=== PATIENT | male | born 1955 | race Caucasian/White ===

== ENCOUNTER 2019-08-21 08:36 | Day surgery (SDC) | payer MEDICARE, BC ==
[2019-08-19 10:32] VITALS: BMI 24.6
[~2019-08-21 08:36] MED LIST: LACTATED RINGERS 1,000 ML IV SCH
[2019-08-21 09:06] VITALS: TEMP 98.3
[2019-08-21] MEDS ORDERED: MIDAZOLAM 2 MG/2 ML VIAL ONE (09:23)
[2019-08-21] MEDS ORDERED: fentaNYL (PF) 50 MCG/ML 2 ML AMP ONE (09:23)
[2019-08-21] MEDS ORDERED: PROPOFOL 10 MG/ML 20 ML VIAL IV ONE (09:23)
--- NOTE | 2019-08-21 09:29 | P.GSHP ---
History of Present Illness H&P Date: 08/21/19 Chief Complaint: Ulcerative colitis Patient here today for colonoscopy. Patient with history of ulcerative colitis. Last colonoscopy 3 years ago. Symptoms are fairly well controlled with balsalazide. Strong family history of inflammatory bowel disease. Rectal bleeding recently. No family history of colon cancer. Past Medical History Past Medical History: Hyperlipidemia, Hypertension Additional Past Medical History / Comment(s): ulcerative colitis History of Any Multi-Drug Resistant Organisms: None Reported Past Surgical History: No Surgical Hx Reported Past Anesthesia/Blood Transfusion Reactions: No Reported Reaction Smoking Status: Never smoker - Past Family History Mother Family Medical History: Cancer Additional Family Medical History / Comment(s): lung Medications and Allergies Home Medications Medication Instructions Recorded Confirmed Type Fexofenadine HCl [Shahrzad Allergy] 180 mg PO DAILY PRN 05/13/14 08/21/19 History Metoprolol Tartrate [Lopressor] 100 mg PO BID 05/13/14 08/21/19 History Simvastatin [Zocor] 40 mg PO HS 05/13/14 08/21/19 History Balsalazide Disodium 1,500 mg PO TID 08/19/19 08/21/19 History Oxymetazoline 0.05% Nasl [place] 2 spray EA NOSTRIL DAILY PRN 08/19/19 08/21/19 History [Afrin 0.05% Nasal [place]] Allergies Allergy/AdvReac Type Severity Reaction Status Date / Time No Known Allergies Allergy Verified 08/21/19 08:55 Surgical - Exam Vital Signs Temp Pulse Resp BP Pulse Ox 98.3 F 54 L 18 134/78 96 08/21/19 09:05 08/21/19 09:05 08/21/19 09:05 08/21/19 09:05 08/21/19 09:05 Physical exam: General: Well-developed, well-nourished HEENT: Normocephalic, sclerae nonicteric Abdomen: Nontender, nondistended Extremities: No edema Neuro: Alert and oriented Assessment and Plan (1) Colitis Narrative/Plan: Will proceed with colonoscopy Current Visit: Yes Status: Acute Code(s): K52.9 - NONINFECTIVE GASTROENTERITIS AND COLITIS, UNSPECIFIED SNOMED Code(s): 08364234
--- NOTE | 2019-08-21 09:49 | P.PCN ---
Date of Procedure: 08/21/19 Procedure(s) Performed: PREOPERATIVE DIAGNOSIS: Colitis POSTOPERATIVE DIAGNOSIS: Hepatic flexure polyp, pancolitis PROCEDURE: Colonoscopy with snare polypectomy and biopsy ANESTHESIA: MAC SURGEON: Yimi Wick M.D. SPECIMENS: Hepatic flexure polyp, colitis ENDOSCOPIC PROCEDURE: The patient was placed on the endoscopy table in the left decubitus position. The Olympus colonoscope was inserted into the anus and passed under direct visualization to the base of the cecum. The appendiceal orifice was visualized. From that point the scope was slowly withdrawn inspecting all surfaces carefully. There was noted to be evidence of colitis diffusely. Inflammatory changes more severe the more distal we evaluated. At the hepatic flexure a small polyp was identified and removed using the snare with cautery technique. No additional polypoid lesions or neoplastic changes were seen throughout the colon. There were no deep ulceration seen in the patient's posterior place him to be most active in the rectum as expected. There was very subtle narrowing of the mid rectum without ulceration or nodular ity. Random biopsies of the colitis took place throughout the colon. No diverticulosis was seen. Digital rectal examination was normal. The patient was taken to the recovery room in stable condition per anesthesia guidelines. RECOMMENDATIONS: Await biopsy results. Will defer to GI for future inflammatory bowel disease management.
[2019-08-21 09:57] VITALS: RESP 16
[2019-08-21 10:10] VITALS: BP 121/75; PULSE 53
[2019-08-26 06:58] LABS: Glucose,Whole Blood 118 mg/dL (75-99)
== END 2019-08-21 10:17 | disposition home or self-care (01) ==
LOC: ORWHC2ENDO 08:36
PROVIDERS: ATTEND Surgery
DX: K51.90 Ulcerative colitis, unspecified, without complications (principal); K63.5 Polyp of colon; I10 Essential (primary) hypertension; E78.5 Hyperlipidemia, unspecified; Z79.899 Other long term (current) drug therapy; Z83.79 Family history of other diseases of the digestive system; Z80.1 Family history of malignant neoplasm of trachea, bronchus and lung
CPT/HCPCS: 88305; 45380; 45385; J2250; J3010; J2704

== ENCOUNTER 2021-07-28 07:35 | Day surgery (SDC) | payer MEDICARE, BC ==
[2021-07-26 12:53] VITALS: BMI 24.6
[~2021-07-28 07:35] MED LIST changes: +LIDOCAINE 1% (10MG/ML) FOR IV START INTRADERMA PRN
[2021-07-28] MEDS ORDERED: PROPOFOL 10 MG/ML 20 ML VIAL IV ONE (08:17)
[2021-07-28 08:20] VITALS: TEMP 97.9
[2021-07-28 08:29] LABS: Glucose,Whole Blood 135 mg/dL (75-99)
--- NOTE | 2021-07-28 08:39 | P.PCN ---
Date of Procedure: 07/28/21 Procedure(s) Performed: BRIEF HISTORY: Patient is a in 86-year-old pleasant white male scheduled for an elective colonoscopy as a part of long-standing history of ulcerative colitis diagnosed almost 35 years ago. He is in clinical remission. He is maintained on balsalazide 3 tablets 3 times daily. PROCEDURE PERFORMED: Colonoscopy with random biopsies. PREOPERATIVE DIAGNOSIS: Long-standing history of ulcerative colitis. IV sedation per Anesthesia. PROCEDURE: After informed consent was obtained, the patient, was brought into the endoscopy unit. IV sedation was administered by Anesthesia under continuous monitoring. Digital rectal examination was normal. Initially the Olympus CF-160 flexible video colonoscope was then inserted in the rectum, gradually advanced into the cecum without any difficulty. Careful examination was performed as the scope was gradually being withdrawn. Ileocecal valve and the appendiceal orifice were visualized and appeared normal. Prep was excellent. Mucosa of the cecum, ascending colon, transverse colon, appeared normal. There were patchy areas of erythema noted in the proximal descending colon, mid sigmoid colon and proximal rectum with no erosions or ulcerations and multiple biopsies were done at every 10 cm intervals from the cecum to the rectum to rule out dysplasia. There was some scarring of the mucosa noted in the distal rectum. The patient tolerated the procedure well. IMPRESSION: Mild patchy areas of erythema noted in the proximal rectum, mid sigmoid colon and proximal descending colon but no evidence of colorectal neoplasia Some scarring in the distal rectum noted. RECOMMENDATIONS: Findings of this examination were discussed with the patient as well as his family. He was advised to follow with the biopsy results. If the biopsy does not show any evidence of dysplasia, he can have a repeat colonoscopy every 2 years.. He was advised to continue with balsalazide 3 tablets 3 times daily.
[2021-07-28 08:58] VITALS: BP 129/81; PULSE 61; RESP 16
== END 2021-07-28 09:11 | disposition home or self-care (01) ==
LOC: ORWHC2ENDO 07:35
PROVIDERS: ATTEND Internal Medicine Gastroenterology
DX: K51.90 Ulcerative colitis, unspecified, without complications (principal)
CPT/HCPCS: 45380; J2704

== ENCOUNTER → 2022-01-25 | Outpatient (CLI) | payer MEDICARE, BC ==
--- NOTE | 2022-01-25 12:26 | NM ---
EXAMINATION TYPE: NM stress cardiolite complete DATE OF EXAM: 01/25/2022 COMPARISON: NONE HISTORY: I25.10 TECHNIQUE: After the intravenous administration of 9.8 mCi Tc 99m Sestamibi - Rest images obtained 4 5 minutes post injection. The patient exercised using a MARTHA protocol and 1 minute prior to peak e xercise was injected with 25.5 mCi Tc 99m Sestamibi - Stress images obtained 30 minutes post injectio n. FINDINGS: Targeted heart rate was achieved during performance of the study, patient achieved greater than 100% of predicted maximal heart rate. Review of stress and rest SPECT images demonstrates decreased uptake along the inferior wall the left ventricle on stress as compared to rest images. Gated analysis vero ws normal wall motion with an estimated left ventricular ejection fraction of 62 %. IMPRESSION: Findings suggest stress-induced left ventricular myocardial ischemia along the inferior wall left ramez tricle A Yellow level critical message alert has been initiated for Sandra Suacedo MD via the [employer] Critical Results System on 01/25/2022 12:23 PM. This message alert has been sent to Sandra Saucedo MD via the preferences provided by the clinician for the receipt of Radiology Critical Findings. Message ID [id number].
--- NOTE | 2022-01-26 10:27 | CA ---
Exercise Stress Test Report Name: Ceferino Rene Exam Date: 01/25/2022 10:43 Exam Location: [place] [facility] Ht (in): 75 Wt (lb): 200 BSA: 2.19 Ordering Phys: Sandra Saucedo MD Referring Phys: Sheryl, Technologist: Anil Stewart Age: 66 Gender: M : 1955 Procedure CPT: Indications: I25.10 Atherosclerotic heart disease ICD-10 Codes: Patient History: Hx of HTN, Diabetes, Elevated cholesterol, Family Hx of heart disease. Medications: Metoprolol, Simvastatin, Vitamin D, Meds past 24 hrs: Pretest Chest Pain: STRESS TEST Jn Protocol Exercise Duration (min:sec): 10:[address] Depressions (mm): Angina Score: Bunn Score: Resting HR (bpm): 87 Peak HR (bpm): 160 Resting BP (mmHg): 148 / 93 Peak BP (mmHg): 198 / 86 MPHR: 153 Target HR: 130 % MPHR: 105 METS: 12.1 Total Dose: Peak Dose: Atropine: Double Product: 35661 BP Response: Stress Termination: Stress Symptoms: No symptoms Stress Summary: ECG ANALYSIS Resting ECG: Stress ECG: CONCLUSIONS Baseline heart rate 69 beats a minute, Baseline blood pressure 143/93 mmHg Baseline EKG shows sinus rhythm and normal ST segments Patient exercised on a Jn protocol for 10 minutes, achieving a peak heart rate of 160 beats a minute T blood pressure 193/92 mmHg No ECG evidence of ischemia No symptoms No arrhythmias Nuclear portion will be reported separately Dr. Arturo Lord MD (Electronically Signed) Final Date: 26 Jan 2022 10:25
== END | disposition home or self-care (01) ==
LOC: RADNMMAIN 07:48
PROVIDERS: ATTEND Internal Medicine
DX: I25.10 Atherosclerotic heart disease of native coronary artery without angina pectoris (principal)
CPT/HCPCS: 78452; A9500; 93017

== ENCOUNTER → 2022-01-31 | Outpatient (CLI) | payer MEDICARE, BC ==
[2022-01-31 18:25] LABS: HCT 46.9 % (39.6-50.0); HGB 15.1 g/dL (13.0-17.0); MCH 31.2 pg (27.0-32.0); MCHC 32.2 g/dL (32.0-37.0); MCV 96.9 fL (80.0-97.0); Mean Platelet Volume 9.7 fL (9.5-12.2); NRBC Per 100 WBC 0 /100 WBCS (0.0-0.0); Platelet Count 275 X 10*3/uL (140-440); RBC 4.84 X 10*6/uL (4.40-5.60); RDW 13.5 % (11.5-14.5); WBC 6.81 X 10*3/uL (4.50-10.00)
[2022-01-31 18:27] LABS: African American GFR (CKD) 91.2 (60.0-200.0); Anion Gap 8.1 mmol/L (10.00-18.00); Blood Urea Nitrogen 16.5 mg/dL (9.0-27.0); Carbon Dioxide 28.1 mmol/L (20.0-27.5); Non-African American GFR(CKD) 78.7 (60.0-200.0)
== END | disposition home or self-care (01) ==
LOC: LABPAT 10:43
PROVIDERS: ATTEND Internal Medicine
DX: Z01.812 Encounter for preprocedural laboratory examination (principal); R06.02 Shortness of breath
CPT/HCPCS: 36415; 80051; 82565; 84520; 85027

== ENCOUNTER → 2022-10-15 | Outpatient (CLI) | payer MEDICARE, BC ==
--- NOTE | 2022-10-18 19:29 | MR ---
EXAMINATION TYPE: MR Prostate wo/w con DATE OF EXAM: 10/15/2022 8:45 AM COMPARISON: None. CLINICAL INDICATION:Male, 67 years old with history of R97.20; TECHNIQUE: Multi-planar, multi-sequence imaging of the pelvis is performed prior to and following the uncomplicated administration of bolus intravenous gadolinium. CONTRAST: 9 Gadavist Interpretive Criteria: PI-RADS v2.1 SERUM PSA: 7.4 on 09/23/2022 8.0 on 06/15/2022 SURGICAL PATHOLOGY: No data available. FINDINGS: Prostatic dimensions: 6.1 x 6.8 x 4.9 cm. Ellipsoid Volume:106.42 (PSA density=0.07 ng/mL/mL) CENTRAL GLAND (Central and Transition Zones/CZ+TZ): Multiple bilateral, heterogenous appearing hypertrophic stromal nodules, without suspicious lesion. M edian lobe hypertrophy with protrusion into the base of the bladder. (PI-RADS 2) PERIPHERAL ZONE (PZ): Bilateral linear, indistinct wedgelike areas of low ADC, and low T2 signal, No evidence of masslike a bnormality, or localized perfusional hypervascularity, to further suggest a focus of clinically signi ficant prostate cancer. (PI-RADS 2) SEMINAL VESICLES (SV): Symmetric and unremarkable. PERIPROSTATIC TISSUES: Unremarkable. LYMPH NODES: No enlarged pelvic lymph node. No greater than 1.0 cm short axis lymph nodes identified. REMAINING PELVIS: Bladder wall is within normal limits given distention. No abnormal free or organized intrapelvic fluid collection. No pathologic bowel dilation or mural thickening. Submucosal fat deposition within the rectum. OSSEOUS STRUCTURES: No suspicious osseous abnormality. IMPRESSION: 1. No specific features for high-risk prostate cancer. Maximum PI-RADS score: 2. 2. Substantial BPH, estimated gland volume 106 mL.
== END | disposition home or self-care (01) ==
LOC: RADMRIMAIN 07:29
PROVIDERS: ATTEND Urology
DX: N40.0 Benign prostatic hyperplasia without lower urinary tract symptoms (principal); R97.20 Elevated prostate specific antigen [PSA]
CPT/HCPCS: 72197; A9585

== ENCOUNTER → 2022-12-27 | Outpatient (CLI) | payer MEDICARE, BC ==
--- NOTE | 2022-12-27 12:05 | US ---
EXAMINATION TYPE: US carotid duplex BILAT DATE OF EXAM: 12/27/2022 COMPARISON: NONE CLINICAL HISTORY: I65.23 OCCLUSION AND STENOSIS OF BILATERAL CAROTID ARTERIES. Pt has no complaints a t this time, states this is a check-up TECHNIQUE: Carotid duplex ultrasound examination. Indirect Doppler criteria was utilized. FINDINGS: EXAM MEASUREMENTS: RIGHT: Peak Systolic Velocity (PSV) cm/sec ----- Right CCA: 115 ----- Right ICA: 94.4 ----- Right ECA: 141 ICA/CCA ratio: 0.8 RIGHT: End Diastole cm/sec ----- Right CCA: 25.8 ----- Right ICA: 33.3 ----- Right ECA: 19.7 LEFT: Peak Systolic Velocity (PSV) cm/sec ----- Left CCA: 111 ----- Left ICA: 90.4 ----- Left ECA: 128 ICA/CCA ratio: 0.8 LEFT: End Diastole cm/sec ----- Left CCA: 28.3 ----- Left ICA: 29.9 ----- Left ECA: 19.7 VERTEBRALS (direction of flow): Right Vertebral: Unable to visualize Left Vertebral: Antegrade Rhythm: Normal REGISTERED NURSE MATERNAL CHILD NOTES: No evidence of significant stenosis bilaterally IMPRESSION: No evidence for hemodynamically significant stenosis. Right vertebral flow is poorly visualized. Criteria for Assigning % of Stenosis / Diameter reduction (Estimation based on the indirect measurements of the internal carotid artery velocities (ICA PSV). 1. Normal (no stenosis)=ICA PSV < 125 cm/s: ratio < 2.0: ICA EDV<40 cm/s. 2. Less than 50% stenosis=ICA PSV < 125 cm/s: ratio < 2.0: ICA EDV<40 cm/s. 3. 50 to 69% stenosis=ICA PSV of 125 to 230 cm/s: ration 2.0 ? 4.0: ICA EDV 40-100 cm/s. 4. Greater than 70% stenosis to near occlusion= ICA PSV > 230 cm/s: ratio > 4.0: ICA EDV > 100 cm/s. 5. Near occlusion= ICA PSV velocities may be low or undetectable: variable ratio and ICA EDV. 6. Total occlusion=unable to detect flow.
== END | disposition home or self-care (01) ==
LOC: RADUSWWP 10:51
PROVIDERS: ATTEND Internal Medicine
DX: I65.23 Occlusion and stenosis of bilateral carotid arteries (principal)
CPT/HCPCS: 93880

== ENCOUNTER 2023-09-05 07:47 | Day surgery (SDC) | payer MEDICARE, BC ==
[2023-08-31 12:38] VITALS: BMI 25.0
[2023-09-05 08:24] LABS: Glucose,Whole Blood 165 mg/dL (70-110)
[2023-09-05 08:33] VITALS: RESP 16; TEMP 97.1
[2023-09-05] MEDS ORDERED: PROPOFOL 10 MG/ML 20 ML VIAL IV ONE (08:39)
--- NOTE | 2023-09-05 08:56 | P.PCN ---
Date of Procedure: 09/05/23 Procedure(s) Performed: BRIEF HISTORY: Patient is a 68-year-old pleasant white female male scheduled for an elective colonoscopy as a part of surveillance of long-standing history of ulcerative colitis. PROCEDURE PERFORMED: Colonoscopy random biopsy. PREOPERATIVE DIAGNOSIS: Long-standing history of ulcerative colitis diagnosed 25 years ago. IV sedation per Anesthesia. PROCEDURE: After informed consent was obtained, the patient, was brought into the endoscopy unit. IV sedation was administered by Anesthesia under continuous monitoring. Digital rectal examination was normal. Initially the Olympus CF-160 flexible video colonoscope was then inserted in the rectum, gradually advanced into the cecum without any difficulty. Careful examination was performed as the scope was gradually being withdrawn. Ileocecal valve and the appendiceal orifice were visualized and appeared normal. Prep was excellent. Mucosa of the cecum, ascending colon, transverse colon, descending colon, sigmoid colon, and rectum appeared normal. Scattered sigmoid diverticulosis. There were loss of haustrations the left colon. Random biopsies were done from cecum to rectum at every 10 cm intervals to rule out dysplasia. Retroflexion was performed in the rectum and no lesions were seen. The patient tolerated the procedure well. IMPRESSION: Normal-appearing colon from rectum to cecum no evidence of colorectal neoplasia . Scattered sigmoid diverticulosis. RECOMMENDATIONS: Findings of this examination were discussed with the patient as well as his family. He was advised to follow up with the biopsy results. Continue with balsalazide 3-3 times daily. If the biopsy does not show any evidence of dysplasia, recommend a repeat colonoscopy in 2 years
[2023-09-05 09:24] VITALS: BP 117/72; PULSE 61
[2023-09-06] MEDS ORDERED: ONDANSETRON 4 MG/2 ML VIAL ONE (10:24)
== END 2023-09-05 09:20 | disposition home or self-care (01) ==
LOC: ORWHC2ENDO 07:47
PROVIDERS: ATTEND Internal Medicine Gastroenterology
DX: K51.90 Ulcerative colitis, unspecified, without complications (principal); K57.30 Diverticulosis of large intestine without perforation or abscess without bleeding; I25.10 Atherosclerotic heart disease of native coronary artery without angina pectoris; I10 Essential (primary) hypertension; E78.5 Hyperlipidemia, unspecified; E11.9 Type 2 diabetes mellitus without complications; Z79.82 Long term (current) use of aspirin; Z79.84 Long term (current) use of oral hypoglycemic drugs; Z79.899 Other long term (current) drug therapy
CPT/HCPCS: 88305; 45380; J2704

== ENCOUNTER → 2024-01-01 | Outpatient (CLI) | payer MEDICARE, BC ==
--- NOTE | 2024-01-01 19:27 | US ---
EXAMINATION TYPE: US arterial LE single level DATE OF EXAM: 01/01/2024 9:02 AM CLINICAL INDICATION: Male, 68 years old with history of I73.9 PAD (peripheral arterial disease) ; Wea k pulses right side History of: Smoker: No Hypertension: Takes medication Diabetic: Yes Hyperlipidemia: Yes TIA/CVA: No Previous Vascular Surgery: No CAD: No ME: No Vascular Ulcers: No Claudication: No Gangrene: No Doppler Waveforms: Right: Multiphasic Left: Multiphasic Right Brachial Pressure: 123 Left Brachial Pressure: 127 Ankle-Brachial Indices: Right: 1.16 Left: 1.10 (Vessel hardening > 1.4; Normal 0.9 - 1.4, Moderate 0.7 - 0.9, Severe 0.5-0.7) Toe Brachial Indices: Right: 0.83 Left: 1.05 IMPRESSION: Ankle-brachial indices within normal limits bilaterally.
== END | disposition home or self-care (01) ==
LOC: RADUSWWP 08:37
PROVIDERS: ATTEND Internal Medicine
DX: I73.9 Peripheral vascular disease, unspecified (principal); E78.5 Hyperlipidemia, unspecified; I10 Essential (primary) hypertension; E11.9 Type 2 diabetes mellitus without complications
CPT/HCPCS: 93922